=== PATIENT | male | born 1980 | race Caucasian/White ===

== ENCOUNTER 2020-01-16 17:24 | Emergency (ER) | payer OTHER, SELFPAY ==
[2020-01-16 17:33] VITALS: BP 121/87; PULSE 126; RESP 20; TEMP 36.9; O2SAT 100
--- NOTE | 2020-01-16 18:16 | ED.EAR ---
HPI - Ear Problem General Chief complaint: Ear Stated complaint: Inner Ear discomfort Time Seen by Provider: 01/16/20 17:57 Source: patient Mode of arrival: ambulatory Limitations: no limitations History of Present Illness HPI Narrative: A 39 y/o male has presented to the ED with c/o rt ear pain that has been going on for the past month. Pt states that it feels like there is something is in his ear. He notes that he believes it started as a cyst and one morning he woke up to find an odorous pus on his pillow. Pt denies N/V/D or a headache. MD Complaint: ear pain and ear discharge Location: right ear Discharge from ear: Reports yes - purulent Treatment prior to arrival: none Related Data Home Medications Medication Instructions Recorded Confirmed trazodone 150 mg PO HS 01/16/20 Allergies Allergy/AdvReac Type Severity Reaction Status Date / Time No Known Allergies Allergy Mild Verified 01/16/20 18:25 Review of Systems Review of Systems: All systems reviewed & are unremarkable except as noted in HPI and below ENT: Reports ear discharge (odorous) and Reports otalgia Gastrointestinal: Gastrointestinal: Denies diarrhea, Denies nausea and Denies vomiting Neurologic: Denies headache(s) PMFSH Past Medical History Medical History (Updated 01/16/20 @ 18:32 by Roberto Simmons) Femur fracture, right Social History Social History (Updated 01/16/20 @ 18:33 by Roberto Simmons) Smoking packs per day: 0.5 Smoking cigarettes per day: 10.0 Smoking status: Current every day smoker Alcohol intake: never Comments Right femur surgery with kiera Exam Const: General: healthy appearing, no acute distress and well developed Nutritional Appearance: well nourished Orientation/consciousness: patient oriented x3 (alert) and Other orientation findings (Alert) Limitations: no limitations HENMT: Head: normocephalic and atraumatic Ears: external ear abnormal (swelling in external ear canal), TM abnormal (partly obscured, but not inflammed) and other (purulent discharge in right ear; no foreign body present) General nose exam: No nasal discharge present and no epistaxis Face and sinus: face symmetric Mouth: Yes lip normal, Yes tongue normal and Yes moist mucous membranes Throat: other (No exudate, no erythema) Eyes: Conjunctivae: conjunctivae normal Sclera: sclerae normal EOM: EOMs intact bilaterally Neck: Neck: full ROM Resp: Effort & Inspection: normal respiratory effort GI: Inspection: non-distended Skin: General skin exam: normal color and no rashes or lesions noted Neuro: General: patient oriented x3 (alert), moves all extremities and no focal motor deficits Cranial nerves: Yes facial symmetry Speech: normal speech Motor exam (neuro): Motor abnormalities not present Extrem: General: normal to inspection, full ROM and no pedal edema Psych: Affect: normal affect Course Vital Signs Vital signs: Vital Signs Temperature 36.9 C 01/16/20 17:33 Pulse Rate 126 H 01/16/20 17:33 Respiratory Rate 20 01/16/20 17:33 Blood Pressure 121/87 01/16/20 17:33 Pulse Oximetry 100 01/16/20 17:33 Temperature 36.9 C 01/16/20 17:33 Pulse Rate 126 H 01/16/20 17:33 Respiratory Rate 20 01/16/20 17:33 Blood Pressure 121/87 01/16/20 17:33 Pulse Oximetry 100 01/16/20 17:33 Medical Decision Making Vital Signs Vital Signs: Vital Signs Temperature 36.9 C 01/16/20 17:33 Pulse Rate 126 H 01/16/20 17:33 Respiratory Rate 20 01/16/20 17:33 Blood Pressure 121/87 01/16/20 17:33 Pulse Oximetry 100 01/16/20 17:33 Temperature 36.9 C 01/16/20 17:33 Pulse Rate 126 H 01/16/20 17:33 Respiratory Rate 20 01/16/20 17:33 Blood Pressure 121/87 01/16/20 17:33 Pulse Oximetry 100 01/16/20 17:33 Discharge Plan Discharge Clinical Impression: Otitis externa Patient Disposition: Home, Self-Care Condition: Stable Instructions: Otitis Externa (ED) Prescriptions:
== END 2020-01-16 18:41 | disposition home or self-care (01) ==
PROVIDERS: Emergency Provider Emergency Medicine
DX: H60.91 Unspecified otitis externa, right ear (principal); F17.210 Nicotine dependence, cigarettes, uncomplicated
CPT/HCPCS: 99283

== ENCOUNTER 2020-01-22 18:05 | Emergency (ER) | payer SELFPAY ==
[2020-01-22 18:03] VITALS: BP 135/91; PULSE 132; RESP 20; TEMP 37.5; O2SAT 98
[2020-01-22 18:10] VITALS: RESP 24
--- NOTE | 2020-01-22 18:11 | ED_ITS ---
I attest that this documentation has been prepared under the direction and in the presence of Oswald Rodríguez MD. Ysabel Guzman Scribe 01/22/20;18:11 HPI - Overdose General Chief Complaint: Overdose Stated Complaint: overdose Time Seen by Provider: 01/22/20 18:09 Related Data Home Medications Medication Instructions Recorded Confirmed trazodone 150 mg PO HS 01/16/20 Allergies Allergy/AdvReac Type Severity Reaction Status Date / Time No Known Allergies Allergy Mild Verified 01/22/20 18:08 [facility] Past Medical History Medical History (Updated 01/17/20 @ 00:00 by Tato Van) Femur fracture, right Social History Social History (Updated 01/16/20 @ 18:33 by Roberto Simmons) Smoking packs per day: 0.5 Smoking cigarettes per day: 10.0 Smoking status: Current every day smoker Alcohol intake: never Course Vital Signs Vital signs: Vital Signs Temperature 37.5 C 01/22/20 18:03 Pulse Rate 132 H 01/22/20 18:03 Respiratory Rate 20 01/22/20 18:03 Blood Pressure 135/91 H 01/22/20 18:03 Pulse Oximetry 98 01/22/20 18:03 Temperature 37.5 C 01/22/20 18:03 Pulse Rate 132 H 01/22/20 18:03 Respiratory Rate 24 H 01/22/20 18:10 Blood Pressure 135/91 H 01/22/20 18:03 Pulse Oximetry 98 01/22/20 18:03 Discharge Plan Discharge Prescriptions: No Action trazodone 150 mg Tablet 150 mg PO HS RF: 0
--- NOTE | 2020-01-22 18:27 | ED.GENADULT ---
HPI - General Adult General Chief complaint: Overdose Stated complaint: overdose Time Seen by Provider: 01/22/20 18:09 History of Present Illness HPI narrative: Signed out prior to being seen Related Data Home Medications Medication Instructions Recorded Confirmed trazodone 150 mg PO HS 01/16/20 Allergies Allergy/AdvReac Type Severity Reaction Status Date / Time No Known Allergies Allergy Mild Verified 01/22/20 18:08 [facility] Past Medical History Medical History (Updated 01/17/20 @ 00:00 by Tato Van) Femur fracture, right Social History Social History (Updated 01/16/20 @ 18:33 by Roberto Simmons) Smoking packs per day: 0.5 Smoking cigarettes per day: 10.0 Smoking status: Current every day smoker Alcohol intake: never Course Vital Signs Vital signs: Vital Signs Temperature 37.5 C 01/22/20 18:03 Pulse Rate 132 H 01/22/20 18:03 Respiratory Rate 20 01/22/20 18:03 Blood Pressure 135/91 H 01/22/20 18:03 Pulse Oximetry 98 01/22/20 18:03 Temperature 37.5 C 01/22/20 18:03 Pulse Rate 132 H 01/22/20 18:03 Respiratory Rate 24 H 01/22/20 18:10 Blood Pressure 135/91 H 01/22/20 18:03 Pulse Oximetry 98 01/22/20 18:03 Medical Decision Making Vital Signs Vital Signs: Vital Signs Temperature 37.5 C 01/22/20 18:03 Pulse Rate 132 H 01/22/20 18:03 Respiratory Rate 20 01/22/20 18:03 Blood Pressure 135/91 H 01/22/20 18:03 Pulse Oximetry 98 01/22/20 18:03 Temperature 37.5 C 01/22/20 18:03 Pulse Rate 132 H 01/22/20 18:03 Respiratory Rate 24 H 01/22/20 18:10 Blood Pressure 135/91 H 01/22/20 18:03 Pulse Oximetry 98 01/22/20 18:03 Discharge Plan Discharge Prescriptions: No Action trazodone 150 mg Tablet 150 mg PO HS RF: 0 Follow-up/Referrals: UNKNOWN,DOCTOR [Primary Care Provider] -
== END 2020-01-22 18:50 | disposition left against medical advice (07) ==
LOC: ANHED 18:34
PROVIDERS: Emergency Provider Emergency Medicine
DX: Z53.21 Procedure and treatment not carried out due to patient leaving prior to being seen by health care provider (principal)
CPT/HCPCS: 99199